=== PATIENT | male | born 1975 | race Caucasian/White ===

== ENCOUNTER 2017-06-30 15:51 | Emergency (ER) | payer OTHER, BC, SELFPAY ==
[2017-06-30 15:51] VITALS: BP 158/68; PULSE 76; RESP 18; TEMP 36.4; O2SAT 99; BMI 31.9
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
[2017-06-30 16:18] VITALS: BP 155/70; PULSE 70; RESP 14; O2SAT 99
== END 2017-06-30 17:09 | disposition home or self-care (01) ==
LOC: ED 16:43
PROVIDERS: Emergency Provider Emergency Medicine
DX: S20.211A Contusion of right front wall of thorax, initial encounter (principal); V49.9XXA Car occupant (driver) (passenger) injured in unspecified traffic accident, initial encounter; Y93.9 Activity, unspecified; Y92.39 Other specified sports and athletic area as the place of occurrence of the external cause
CPT/HCPCS: 71046; 99282

== ENCOUNTER 2020-10-05 21:17 | Emergency (ER) | payer OTHER, SELFPAY ==
[2020-10-05 21:18] VITALS: BP 168/76; PULSE 93; RESP 20; TEMP 37.1; O2SAT 99; BMI 33.8
--- NOTE | 2020-10-05 21:26 | EKG12_ITS ---
Test Reason : CP Blood Pressure : / mmHG Vent. Rate : 087 BPM Atrial Rate : 087 BPM P-R Int : 122 ms QRS Dur : 090 ms QT Int : 380 ms P-R-T Axes : 048 075 054 degrees QTc Int : 457 ms Normal sinus rhythm Nonspecific ST abnormality Abnormal ECG No previous ECGs available Confirmed by TRAVIS NGUYEN, ANA ([id number]), news copy editor INEZ HANNON ([id number]) on 10/08/2020 9:23:20 AM Referred By: LAYO Confirmed By:ANA ROBLES MD
[2020-10-05 21:37] VITALS: O2SAT 99
[2020-10-05 21:38] LABS: Absolute Lymphocyte Count 2.51 X10^3/uL (0.83-4.51); Absolute Neutrophil Count 4.4 X10^3/uL (2.0-7.7); Basophil# 0.07 X10^3/uL; Basophil% 0.9 % (0-1); Eosinophil# 0.32 X10^3/uL; Hematocrit 39.7 % (40-54); Hemoglobin 13.8 g/dL (13.0-16.5); Lymphocyte # 2.51 X10^3/ul (0.83-4.51); Lymphocyte % 31.2 % (19-41); Mean Corp Hgb Conc 34.8 g/dL (32-36); Mean Corpuscular Hgb 33.4 pg (27.0-32.0); Mean Corpuscular Volume 96.1 fL (80-94); Mean Platelet Vol. 10.4 fl (6.2-12.0); Monocyte# 0.68 X10^3/uL; Monocyte% 8.4 % (0-10); NRBC Flagged by Analyzer 0 % (0-5); Neutrophil # 4.41 X10^3/uL (2.7-7.7); Neutrophil % 54.8 % (47-70); Platelet Count 327 K/mm3 (150-450); RBC Distribution Width CV 12.7 % (11.6-14.6); RBC Distribution Width SD 45.1 fl (35.1-43.9); Red Blood Count 4.13 M/mm3 (4.6-6.2); White Blood Count 8.1 K/mm3 (4.4-11.0)
--- NOTE | 2020-10-05 21:38 | RAD_ITS ---
STUDY: X-RAY CHEST REASON FOR EXAM: Male, 45 years old. chest pain TECHNIQUE: PA and lateral views of the chest. COMPARISON: None. FINDINGS: Subtle right lower lobe infiltrate suggesting early infection. Otherwise, lungs are clear. There is no demonstrated pleural abnormality. Normal size heart. Normal mediastinum and alisha. Normal visualized pulmonary arteries. Normal visualized aortic arch and descending thoracic aorta. Normal visualized thoracic spine. Normal visualized ribs, clavicles, and shoulders. There is no demonstrated abnormality of the visualized soft tissue structures of the upper abdomen. RAD/Chest PA and Lateral IMPRESSION: Suspected right lower lobe pneumonia Electronically Signed: Ben Pardo DO at 22:12 EDT Tel , Service support ,
[2020-10-05] MEDS: Aspirin 81 MG TAB.CHEW 324 MG PO (21:43)
[2020-10-05 21:56] LABS: Anion Gap 7 (5-15); BUN 10 mg/dL (7-18); BUN/Creat Ratio 9.9 RATIO (10-20); Calcium,Total 9.1 mg/dL (8.5-10.1); Chloride 101 mmol/L (98-107); Creatinine, Serum 1.01 mg/dL (0.70-1.30); EST Glomerular Filtration Rate 85 mL/min (>60); Est Glom Filt Rate - Afr Amer 103 mL/min (>60); Estimated Creatinine Clearance 102.44 ml/min; Glucose 86 mg/dL (74-106); Potassium 3.1 mmol/L (3.5-5.1); Sodium Level 136 mmol/L (136-145); Troponin-I HS 3.5 pg/mL (3.0-78.5)
--- NOTE | 2020-10-05 22:00 | EDS_ITS ---
HPI History of Present Illness Chief Complaint: Chest Pain Informant: patient and spouse/S.O. Onset/Context/Timing Onset: Today (Today patient had chest pain since arriving to work and has been continuous. Describes his pain mid chest without associated symptoms or radiation) and Yesterday (12 episodes of chest pain that lasted 1 to 2 minutes) Activity at onset: sudden Timing: Continuous (Day) and Intermittent (Yesterday 1 to 2 minutes) Quality: Positive for Pain Location: Substernal and Left Chest Current Severity: Mild Maximum Severity: Moderate Worsened By: Nothing Relieved By: - (Patient stated pain decreased in intensity after leaving work) Associated Symptoms: Negative for Nausea, Vomiting, Diaphoresis, Dyspnea, Cough, Fever, Lightheadedness, Acid Reflux and Palpitations Narrative Narrative: Patient is a 45-year-old male with no significant past medical history on no medication. There is no family history of coronary disease at ea rly age. He denies history of PE or DVT. He presents with chest pain that started yesterday. He had 12 separate episodes lasting 1 to 2 minutes. He states the day he has had continuous pain since driving to work. states he has a strenuous job. He has no associated symptoms. There is no radiation. He denies black or maroon-colored stool. He denies history of PE or DVT. He denies leg pain, swelling discoloration. Prior Similar Symptoms: No Recent Illness/Hospitalization: No CVD Risk Factors: Negative for Hypertension, Diabetes, Hypercholesterolemia, Family History 1' </=55 and Smoking PE Risk Factors: Negative for Recent Travel/Surgery, Recent Immobilization, Prior DVT or PE, Cancer and OCP + Smoking + >/=35 TAD Risk Factors: Negative for Marfan's Syndrome, Hypertension and Family History PFSH PFSH Home Medications NK 06/30/17 [History Last Taken Unknown] Allergy/AdvReac Type Severity Reaction Status Date / Time No Known Allergies Allergy Verified 10/05/20 21:21 Surgical History H/O arthroscopic knee surgery Social History (Updated 10/05/20 @ 22:[address] Faisal Stanley MD) household members: spouse Smoking Status: Current every day smoker tobacco type: cigarettes alcohol intake: current alcohol intake frequency: other substance use type: does not use ROS ROS ED Review of Systems ROS Unobtainable: Denies due to encephalopathy or due to endotracheal tube Constitutional Constitutional ED: Denies chills, fever(s), subjective or sweats Eyes Eyes: Reports none; Denies blurry vision, change in vision or diplopia ENT ENT ED: Denies ear pain, rhinorrhea or sore throat Cardiovascular Cardiovascular: Reports as per HPI; Denies orthopnea or paroxysmal nocturnal dyspnea Respiratory/Chest Respiratory/Chest: Denies dyspnea, dyspnea on exertion, orthopnea or paroxysmal nocturnal dyspnea Gastrointestinal Gastrointestinal: Denies abdominal pain, melena, nausea or vomiting Genitourinary Genitourinary ED: Denies dysuria, hematuria or urinary frequency Musculoskeletal Musculoskeletal: Denies arthralgias, back pain, myalgias or neck pain Integumentary Denies rash Neurologic Neurologic: Denies headache(s), paresthesias or weakness Psychiatric Psychiatric: Denies anxiety or depression Endocrine Endocrinology: Denies polydipsia, polyphagia or polyuria Hematologic/Lymphatic Hematologic/Lymphatic: Denies easy bleeding or easy bruising EXAM Physical Exam Const Vital Signs: 10/05/20 21:18 10/05/20 21:22 10/05/20 21:37 Temperature 98.7 F Temperature Source Temporal Pulse Rate 93 Respiratory Rate 20 H Respiratory Effort Normal Non-Labored Blood Pressure 168/76 H Blood Pressure Mean 106 Pulse Ox 99 99 Oxygen Delivery Method Room Air Room Air Positive well nourished, well developed and obese; Negative for cachectic or contractures General Appearance ED: well developed; Negative for cachectic or contractures Nutritional Appearance: obese; Negative for cachectic HEENT Reports TM's clear and moist mucous membranes normocephalic and atraumatic; Negative for trauma or tenderness Tympanic Membrane ED: Yes TM's clear Eyes PERRL and EOMs intact bilaterally General Eye ED: Negative for pale conjunctiva or scleral icterus Neck No no lymphadenopathy, No supple and no JVD Chest Wall Negative for inspection of chest normal Resp normal respiratory effort and clear to auscultation bilaterally Effort and Inspection: respiratory distress Cardio regular rate, regular rhythm, S1 normal heart sound, S2 normal heart sound and no murmurs GI normal to inspection, nondistended, normoactive bowel sounds, soft to palpation, non-tender and non-distended; Negative for hepatosplenomegaly Palpation: Negative for splenomegaly Back/Spine Negative for no CVA tenderness Extremity Negative for normal to inspection Extremity Narrative: There is no asymmetry, swelling, discoloration, leg vein distention, palpable cords or tenderness along the distribution of the deep venous system. General Extremety ED: Negative for tenderness Neuro No oriented x3, CN's II-XII intact bilaterally and no sensory deficits noted Sensorium / Orientation: Negative for awake or alert Motor Exam: strength 5/5 throughout Psych mental status grossly normal Skin no rashes or lesions noted and no wounds Heart Score History: Slightly/Non-Suspicious ECG: Normal Age: </= 45 years Risk Factors: 1 or 2 Risk Factors Troponin: </= Normal Limit Score: 1 MDM MDM MDM Narrative Medical decision making narrative: Patient with chest pain. This may represent anxiety, GI etiology, pulmonary etiology cardiac. Based on history and physical exam doubt dissection. Lab Data Attestation: I reviewed the patient's lab results. Lab results narrative: High-sensitivity troponin with 12 hours of pain is 3.5 which is normal. Electrolyte panel is normal. White count is normal. Differential is normal. With 12 hours of pain and a normal troponin and normal EKG and heart score of 1 patient we discharged to home to follow-up with his primary care physician. Labs: Laboratory Results - last 24 hr 10/05/20 10/05/20 21:22 21:22 WBC 8.1 RBC 4.13 L Hgb 13.8 Hct 39.7 L MCV 96.1 H MCH 33.4 H MCHC 34.8 RDW Std Deviation 45.1 H RDW Coeff of [place] 12.7 Plt Count 327 MPV 10.4 Immature Gran % (Auto) 0.700 Neut % (Auto) 54.8 Lymph % (Auto) 31.2 [place] % (Auto) 8.4 Eos % (Auto) 4.0 Baso % (Auto) 0.9 Absolute Neuts (auto) 4.4 Absolute Lymphs (auto) 2.51 Nucleated RBC % 0 Sodium 136 Potassium 3.1 L Chloride 101 Carbon Dioxide 28.0 Anion Gap 7 BUN 10 Creatinine 1.01 Estim Creat Clear Calc 102.44 Est GFR (MDRD) Af Amer 103 Est GFR (MDRD) Non-Af 85 BUN/Creatinine Ratio 9.9 L Glucose 86 Calcium 9.1 Troponin I High Sens 3.5 Radiography Chest X-Ray - ED: 2 View, Read by ED Physician (Chest x-ray interpreted by me at 2200.), Heart, Lungs, Mediastinum, Bony Structures and No Acute Disease EKG Initial EKG: Attestation: I personally reviewed and interpreted this EKG as follows: Interpretation: Sinus Rhythm (Normal sinus rhythm with a ventricular rate 87. CA interval is 122 ms. QRS duration 90 ms. QT duration 380 ms. [place] is normal. There is artifact which the computer is reading as an ossific ST T wave abnormality.) Discharge Plan Triage Chief Complaint: Chest Pain ED Provider: Faisal Stanley Dx/Rx/DC Orders Clinical Impression: Chest pain Instructions: ED Chest Pain, Uncertain Cause Prescriptions: No Action NK RF: 0 Primary Care Provider: Care Physician,No Primary Referrals: Gina Baker MD [STAFF PHYSICIAN] - 3-5 Days Care Physician,No Primary [Primary Care Provider] - Disposition Disposition: Home, Self Care
[2020-10-05 22:16] VITALS: BP 135/83; PULSE 74; RESP 16; O2SAT 99
== END 2020-10-05 22:17 | disposition home or self-care (01) ==
PROVIDERS: Emergency Provider Emergency Medicine
DX: R07.9 Chest pain, unspecified (principal); R94.31 Abnormal electrocardiogram [ECG] [EKG]; F17.210 Nicotine dependence, cigarettes, uncomplicated
CPT/HCPCS: 71046; 80048; 84484; 85025; 93005; 99285; A4216